=== PATIENT | male | born 1975 | race Caucasian/White ===

== ENCOUNTER 2020-07-04 15:03 | Outpatient (REF) | payer OTHER, SELFPAY ==
[2020-07-04 21:40] LABS: ALT 31 U/L (16-63); AST 24 U/L (15-37); Anion Gap 8.2 mmol/L (3-11); BUN 14 mg/dL (7-18); CO2 27.8 mmol/L (21.0-32.0); CREATININE 0.78 mg/dL (0.70-1.30); Calcium 8.8 mg/dL (8.5-10.1); Calculated LDL 108 mg/dL (<100); Chloride 103 mmol/L (98-107); Cholesterol 175 mg/dL (<200); Glucose 111 mg/dL (74-106); HDL Cholesterol 38 mg/dL (40-60); Potassium 4.5 mmol/L (3.5-5.1); Sodium 139 mmol/L (136-145); Triglyceride 147 mg/dL (<150)
== END 2020-07-04 15:23 ==
LOC: NCHCN 15:03
PROVIDERS: PCP Nurse Practitioner Gerontology; Visit Provider Nurse Practitioner Family
DX: Z13.220 Encounter for screening for lipoid disorders (principal); I10 Essential (primary) hypertension
CPT/HCPCS: 80048; 80061; 84450; 84460

== ENCOUNTER 2021-10-01 16:41 | Outpatient (REF) | payer OTHER, SELFPAY ==
[2021-10-01 21:32] LABS: Anion Gap 7.5 mmol/L (3-11); BUN 15 mg/dL (7-18); CO2 28.5 mmol/L (21.0-32.0); CREATININE 0.8 mg/dL (0.70-1.30); Calcium 9.3 mg/dL (8.5-10.1); Chloride 103 mmol/L (98-107); Glucose 127 mg/dL (74-106); Potassium 4.4 mmol/L (3.5-5.1); Sodium 139 mmol/L (136-145)
== END 2021-10-01 16:42 | disposition home or self-care (01) ==
LOC: NCHCN 16:41
PROVIDERS: Visit Provider Nurse Practitioner Family
DX: Z00.00 Encounter for general adult medical examination without abnormal findings (principal); I10 Essential (primary) hypertension; R73.09 Other abnormal glucose
CPT/HCPCS: 80048; 83036

== ENCOUNTER 2023-11-23 12:58 | Outpatient (REF) | payer OTHER, SELFPAY ==
[2023-11-23 14:49] LABS: HCT 46.2 % (40.0-50.0); HGB 16.1 g/dL (13.5-17.5); MCH 31.3 pg (27.0-33.0); MCHC 34.8 % (32.0-36.0); MCV 90 fL (80-95); MPV 10.1 fL (8.0-11.0); Platelet Count 228 10^3/uL (130-400); RBC 5.15 10^6/uL (4.36-5.78); RDW 12.3 % (11.8-14.1); RDW-SD 40.2 fL; WBC 6.56 10^3/uL (4.4-10.8)
[2023-11-23 15:12] LABS: ALT 32 U/L (16-63); AST 18 U/L (15-37); Albumin 3.8 g/dL (3.4-5.0); Alkaline Phosphatase 58 U/L (46-116); Anion Gap 11.9 mmol/L (3-11); BUN 13 mg/dL (7-18); Bilirubin, Total 0.6 mg/dL (0.2-1.0); CO2 26.1 mmol/L (21.0-32.0); CREATININE 0.8 mg/dL (0.70-1.30); Calculated LDL 141 mg/dL (<100); Chloride 103 mmol/L (98-107); Cholesterol 212 mg/dL (<200); Estimated GFR 107.82 (mL/min/1.73m2); Glucose 123 mg/dL (74-106); HDL Cholesterol 52 mg/dL (40-60); Potassium 4.5 mmol/L (3.5-5.1); Sodium 141 mmol/L (136-145); Total Protein 6.8 g/dL (6.4-8.2); Triglyceride 98 mg/dL (<150)
[2023-11-23 15:28] LABS: Hemoglobin A1C 5.6 % (<5.7)
[2023-11-23 23:34] LABS: PSA, Screening 4.3 ng/mL (<=3.5)
== END 2023-11-23 12:59 | disposition home or self-care (01) ==
LOC: NCHCN 12:58
PROVIDERS: Referring Provider Nurse Practitioner Family; Visit Provider Nurse Practitioner Family
DX: Z00.00 Encounter for general adult medical examination without abnormal findings (principal); Z13.220 Encounter for screening for lipoid disorders; Z13.228 Encounter for screening for other metabolic disorders; Z13.0 Encounter for screening for diseases of the blood and blood-forming organs and certain disorders involving the immune mechanism; Z13.1 Encounter for screening for diabetes mellitus; Z12.5 Encounter for screening for malignant neoplasm of prostate
CPT/HCPCS: 80053; 80061; 84153; 85027; 83036